=== PATIENT | male | born 1975 | race Caucasian/White ===

== ENCOUNTER → 2023-08-10 11:49 | Outpatient (BNVA) | payer BC, SELFPAY | PROVIDERS: Family Provider Nurse Practitioner Family; PCP Nurse Practitioner Family; Visit Provider Nurse Practitioner Family | DX: J11.1 Influenza due to unidentified influenza virus with other respiratory manifestations (principal); R05.9 Cough, unspecified; J22 Unspecified acute lower respiratory infection | CPT/HCPCS: 87400 ==

== ENCOUNTER → 2023-09-24 08:10 | Outpatient (BNVA) | payer BC, SELFPAY | PROVIDERS: Family Provider Nurse Practitioner Family; PCP Nurse Practitioner Family; Visit Provider Physician Assistant | DX: M72.0 Palmar fascial fibromatosis [Dupuytren] | CPT/HCPCS: 73130 ==

== ENCOUNTER 2024-07-28 14:59 | Outpatient (CLI) | payer BC, SELFPAY ==
--- NOTE | 2024-07-28 15:03 | MR_ITS ---
WS: [id number] MRI HEAD WITH CONTRAST WITH ATTENTION TO THE INTERNAL AUDITORY CANALS TECHNIQUE: Sagittal T1, T2 axial, T2 axial flair, axial susceptibility weighted imaging, axial diffusion weighted images, and coronal T2 images were obtained. Pre and post T1 axial and post T1 coronal images. ADC and FSPGR images. Post gadolinium images with attention to the internal auditory canals. Axial fiesta imaging. CLINICAL INFORMATION: HEARING LOSS COMPARISON: None. FINDINGS: No evidence of restricted diffusion to suggest acute ischemia. Ventricular system and basal cisterns are patent. Normal posterior fossa. Normal vascular flow voids at the skull base. No extra-axial fluid collections. No evidence of mass or mass effect. Paranasal sinuses are well aerated. Mastoid air cells are well aerated. Normal posterior nasopharynx. No suspicious intracranial signal abnormalities. Normal optic chiasm and pituitary infundibulum. Temporal lobes and hippocampal formations are normal in appearance. Proximal 7th and 8th cranial nerves are normal in appearance. Normal trigeminal nerve root entry zones. No evidence of enhancing IAC or CP angle mass. No abnormal intracranial enhancement. Normal dural venous sinuses. MR/MR iac's wo/w con* [id number] IMPRESSION: 1. Proximal seventh and eighth cranial nerves are normal in appearance. Normal trigeminal nerve root entry zones. 2. No evidence of enhancing IAC or CP angle mass. 3. Mastoid air cells are well aerated. Paranasal sinuses are well aerated. 4. No hemosiderin on susceptibility weighted images. 5. No other acute findings.
[2024-07-28] MEDS: gadobenate dimeglumine 20 mL vial IV (15:50)
== END 2024-07-28 15:00 | disposition home or self-care (01) ==
LOC: RAD 15:02
PROVIDERS: Family Provider Nurse Practitioner Family; PCP Registered Nurse; Visit Provider Specialist
DX: H91.90 Unspecified hearing loss, unspecified ear (principal)
CPT/HCPCS: 70553